=== PATIENT | female | born 1940 | race Caucasian/White ===

== ENCOUNTER 2022-07-09 10:50 | Emergency (ER) | payer OTHER ==
[2022-07-09 11:21] VITALS: BP 131/61; PULSE 84; RESP 18; TEMP 98.4; BMI 18.3
[2022-07-09 11:57] LABS: HEMATOCRIT 40.3 % (32.4-45.2); HEMOGLOBIN 13.2 G/dL (10.7-15.3); MCH 30.2 pg (25.7-33.7); MCHC 32.9 g/dl (32.0-36.0); MEAN CELL VOLUME 91.9 fl (80-96); MEAN PLT VOLUME 8.8 fl (7.5-11.1); PLATELET COUNT 210.3 10^3/uL (134-434); RBC 4.39 10^6/uL (3.60-5.2); RDW 16.1 % (11.6-15.6); WHITE BLOOD COUNT 6.8 10^3/uL (4.0-10.8)
[2022-07-09 12:04] LABS: ALBUMIN 3.8 g/dl (3.4-5.0); BILIRUBIN,TOTAL 0.4 mg/dl (0.2-1); CALCIUM 8.8 mg/dl (8.5-10); CREATININE 0.8 mg/dl (0.55-1.3); POTASSIUM 3.9 mmol/L (3.5-5.1); TOT PROT 6.6 g/dl (6.4-8.2)
[2022-07-09 12:48] LABS: EPITHELIAL CELLS MODERATE /hpf
[2022-07-09 13:21] LABS: PLATELET ESTIMATE ADEQUATE
== END 2022-07-09 12:46 | disposition home or self-care (01) ==
LOC: FER 10:50
DX: R79.89 Other specified abnormal findings of blood chemistry (principal); Z20.822 Contact with and (suspected) exposure to COVID-19
CPT/HCPCS: 0241U-QW; 36415; 71045-TC-FY; 80053; 81003; 81015; 84484; 85027; 93005; 99285-25